=== PATIENT | male | born 1965 | race American Indian/Alaskan Native ===

== ENCOUNTER 2017-01-13 09:07 | Emergency (ER) | payer SELFPAY ==
--- NOTE | 2017-01-13 11:11 | Emergency Department Report ---
- General Chief complaint: Skin Rash Stated complaint: POSSIBLE ALLERGIC REACTION, RASH ON FACE Time Seen by Provider: 01/13/17 11:10 Source: patient, family Mode of arrival: Ambulatory Limitations: No Limitations - History of Present Illness Initial comments: Patient here reports rash to his face and neck abdomen and He said he woke up this morning with this rash. Patient said that he has been treated for eczema in the past and it looks like it's the same rash. He said the only thing he ate yesterday was lorenzo and shrimp any had these in the past. Denies any cough , congestion, wheezing, stridor, chest pain or difficulty breathing. Denies it is on the tongue, neck or difficulty swallowing. Denies any fever or chills. Rash is itchy. Denies painful rash. MD complaint: rash -: This morning Tetanus Up to Date: yes Location: face, neck, chest, back Severity scale (0 -10): 0 Context: other (history of eczerma) Associated symptoms: denies other symptoms Treatments Prior to Arrival: none - Related Data Previous Rx's Medication Instructions Recorded Last Taken Type Ciprofloxacin HCl [Ciprofloxacin 500 mg PO Q12H #28 tab 11/13/14 Unknown Rx TAB] Fluconazole [Diflucan TAB] 150 mg PO ONCE #1 tablet 11/13/14 Unknown Rx hydrOXYzine HCL [Atarax] 25 mg PO Q8H PRN #30 tablet 11/13/14 Unknown Rx Gentamicin 0.3% Ophth Soln 1 - 2 drops OP Q4H #1 bottle 01/08/15 Unknown Rx Triamcinolone 0.1% [Kenalog 0.1% 1 applic TP Q12H #1 tube 01/13/17 Unknown Rx OINT] hydrOXYzine HCL [Atarax] 25 mg PO Q6HR PRN #16 tablet 01/13/17 Unknown Rx predniSONE [Deltasone] 20 mg PO QAM #6 tab 01/13/17 Unknown Rx Allergies Allergy/AdvReac Type Severity Reaction Status Date / Time No Known Allergies Allergy Verified 01/13/17 09:10 Abscess Boil HPI - HPI Chief Complaint: Skin Rash Stated Complaint: POSSIBLE ALLERGIC REACTION, RASH ON FACE Time Seen by Provider: 01/13/17 11:10 Home Medications: Previous Rx's Medication Instructions Recorded Last Taken Type Ciprofloxacin HCl [Ciprofloxacin 500 mg PO Q12H #28 tab 11/13/14 Unknown Rx TAB] Fluconazole [Diflucan TAB] 150 mg PO ONCE #1 tablet 11/13/14 Unknown Rx hydrOXYzine HCL [Atarax] 25 mg PO Q8H PRN #30 tablet 11/13/14 Unknown Rx Gentamicin 0.3% Ophth Soln 1 - 2 drops OP Q4H #1 bottle 01/08/15 Unknown Rx Triamcinolone 0.1% [Kenalog 0.1% 1 applic TP Q12H #1 tube 01/13/17 Unknown Rx OINT] hydrOXYzine HCL [Atarax] 25 mg PO Q6HR PRN #16 tablet 01/13/17 Unknown Rx predniSONE [Deltasone] 20 mg PO QAM #6 tab 01/13/17 Unknown Rx Allergies/Adverse Reactions: Allergies Allergy/AdvReac Type Severity Reaction Status Date / Time No Known Allergies Allergy Verified 01/13/17 09:10 ED Review of Systems ROS: Stated complaint: POSSIBLE ALLERGIC REACTION, RASH ON FACE Other details as noted in HPI Comment: All other systems reviewed and negative Constitutional: no symptoms reported ENT: denies: throat pain, congestion Respiratory: no symptoms reported Cardiovascular: denies: chest pain, palpitations, dyspnea on exertion, edema, syncope, paroxysmal nocturnal dyspnea Gastrointestinal: denies: abdominal pain, nausea, vomiting, diarrhea Musculoskeletal: denies: back pain, joint swelling, arthralgia, myalgia Skin: rash, pruritus Neurological: denies: headache, weakness, numbness, paresthesias, confusion, abnormal gait, vertigo ED Past Medical Hx - Past Medical History Previous Medical History?: Yes Hx Hypertension: Yes - Surgical History Past Surgical History?: No - Family History Family history: no significant - Social History Smoking Status: Current Every Day Smoker Substance Use Type: Alcohol - Medications Home Medications: Home Medications Medication Instructions Recorded Confirmed Last Taken Type Ciprofloxacin HCl [Ciprofloxacin 500 mg PO Q12H #28 tab 11/13/14 Unknown Rx TAB] Fluconazole [Diflucan TAB] 150 mg PO ONCE #1 tablet 11/13/14 Unknown Rx hydrOXYzine HCL [Atarax] 25 mg PO Q8H PRN #30 tablet 11/13/14 Unknown Rx Gentamicin 0.3% Ophth Soln 1 - 2 drops OP Q4H #1 bottle 01/08/15 Unknown Rx Triamcinolone 0.1% [Kenalog 0.1% 1 applic TP Q12H #1 tube 01/13/17 Unknown Rx OINT] hydrOXYzine HCL [Atarax] 25 mg PO Q6HR PRN #16 tablet 01/13/17 Unknown Rx predniSONE [Deltasone] 20 mg PO QAM #6 tab 01/13/17 Unknown Rx ED Physical Exam - General Limitations: No Limitations General appearance: alert, in no apparent distress - Head Head exam: Present: atraumatic, normocephalic, normal inspection - Eye Eye exam: Present: normal appearance, PERRL, EOMI. Absent: periorbital swelling , periorbital tenderness Pupils: Present: normal accommodation - ENT ENT exam: Present: normal exam, normal orophraynx, mucous membranes moist - Neck Neck exam: Present: normal inspection, full ROM. Absent: tenderness, lymphadenopathy, thyromegaly - Expanded Neck Exam Expanded Neck exam: Absent: tenderness, midline deformity, anterior neck swelling, tracheal deviation - Respiratory Respiratory exam: Present: normal lung sounds bilaterally. Absent: respiratory distress, chest wall tenderness, accessory muscle use - Cardiovascular Cardiovascular Exam: Present: regular rate, normal rhythm, normal heart sounds. Absent: systolic murmur, diastolic murmur - GI/Abdominal GI/Abdominal exam: Present: soft, normal bowel sounds. Absent: distended, tenderness, guarding, rebound, rigid - Extremities Exam Extremities exam: Present: full ROM, normal capillary refill. Absent: tenderness, pedal edema, joint swelling, calf tenderness - Neurological Exam Neurological exam: Present: alert, oriented X3, normal gait, reflexes normal. Absent: motor sensory deficit - Psychiatric Psychiatric exam: Present: normal affect, normal mood - Skin Skin exam: Present: warm, dry, rash - Expanded Skin Exam Expanded Type of lesion: Present: rash Distribution of rash: face, neck, chest, back, RUE (antecubital area), LUE (the cubital area) Description of rash: Present: crusting, other (dry scaly, patches). Absent: tenderness, erythematous, swelling, urticarial, discharge ED Course Vital Signs 01/13/17 09:11 Temperature 98.2 F Pulse Rate 95 H Respiratory 18 Rate Blood Pressure 151/96 O2 Sat by Pulse 96 Oximetry - Reevaluation(s) Reevaluation #1: 01/13/17 12:57 Patient treated in emergency room with Solu-Medrol 120 mg IV, Benadryl 50 mg IV and Pepcid 20 mg IV. He voiced relief of itching in. Patient with eczema flare ED Medical Decision Making - Medical Decision Making ED course: Pt here complaining of rash that started this morning physical findings for eczema flare she's had in the past. Patient was given Benadryl 50 mg IV, Solu-Medrol 125 mg IV and Pepcid 20 mg IV and emergency room which relieved Itching. Patient rash is localized to the skin and does not affect his respiratory system. Records were reflects that he is being treated here in the past for similar incident. I discussed patient that I will put him on Atarax which is taken in the past and steroids and to follow up with environmental engineering technician and 3 days. Critical care attestation.: If time is entered above; I have spent that time in minutes in the direct care of this critically ill patient, excluding procedure time. ED Disposition Clinical Impression: Pruritus Eczema Qualifiers: Eczema type: unspecified Qualified Code(s): L30.9 - Dermatitis, unspecified Disposition: DC-01 TO HOME OR SELFCARE Is pt being admited?: No Does the pt Need Aspirin: No Condition: Stable Instructions: Eczema (ED), Itchy Skin (ED) Additional Instructions: Take medication as prescribed Follow-up with environmental engineering technician in 3 days Keep affected area clean and dry. Followed discharge instruction on acute wound care . Please return to emergency room if you develop increasing redness, streaking, fever, difficulty moving in and the left forearm and increase in pain. Prescriptions: hydrOXYzine HCL [Atarax] 25 mg PO Q6HR PRN #16 tablet PRN Reason: Itching predniSONE [Deltasone] 20 mg PO QAM #6 tab Triamcinolone 0.1% [Kenalog 0.1% OINT] 1 applic TP Q12H #1 tube Referrals: PRIMARY CAREMD [Primary Care Provider] - 01/16/17 MIKE MONTES DE OCA MD [Staff Physician] - 01/16/17 Forms: Work/School Release Form(ED)
[2017-01-13] MEDS ORDERED: BENADRYL IV ONE (11:12)
[2017-01-13] MEDS ORDERED: PEPCID IV ONE (11:12)
[2017-01-13] MEDS ORDERED: CLEOCIN 900 MG/50 mL 900 MG/50 ML BAG IV ONE (11:13)
[2017-01-13 13:21] VITALS: BP 175/95
== END 2017-01-13 13:22 | disposition home or self-care (01) ==
LOC: ED 09:07
DX: L30.9 Dermatitis, unspecified (principal); I10 Essential (primary) hypertension; F17.210 Nicotine dependence, cigarettes, uncomplicated
CPT/HCPCS: 96365; 96366; 96375; 99282; J1200; J2930

== ENCOUNTER 2017-02-02 03:05 | Emergency (ER) | payer SELFPAY ==
[2017-02-02] MEDS ORDERED: CATAPRES PO ONE (05:56)
[2017-02-02 06:22] LABS: Bilirubin,Urine NEG (Negative); Blood,Urine SM (Negative); Ketones,Urine NEG (Negative); Leukocyte Esterase,Urine SM (Negative); Mucus,Urine FEW /HPF; Nitrite,Urine NEG (Negative); Protein,Urine <15 mg/dL mg/dL (Negative)
[2017-02-02 07:21] VITALS: BP 141/94
[2017-02-02] MEDS ORDERED: ZITHROMAX PO ONE (08:21)
[2017-02-02] MEDS ORDERED: XYLOCAINE 1% MPF 5 mL INFILTRATI ONE (08:21)
[2017-02-02] MEDS ORDERED: ROCEPHIN IM ONE (08:21)
--- NOTE | 2017-02-02 08:23 | Emergency Department Report ---
HPI - General Chief Complaint: Skin Rash Time Seen by Provider: 02/02/17 08:09 - HPI HPI: Patient here report that he has flareup of eczema on his face back of his neck and his upper extremities. He said he has eczema and when he gets a flare up he usually takes steroids. He reports a itch. Patient is also requesting that he gets treatment for STD because his girlfriend called them and told them that she has gonorrhea. He said he is not having any penile discharge or urinary burning frequency or urgency. Denies any abdominal or back pain. Denies any fever or chills. Denies any blood in his urine. He said he would just like to get treated. As any difficulty breathing or respiratory symptoms of eczema flareup. Patient blood pressure is elevated at 175/112 and he does have a history of hypertension and said he takes blood pressure medicine she does not take today. He was given clonidine 0.2 mg in triage ED Past Medical Hx - Past Medical History Previous Medical History?: Yes Hx Hypertension: Yes - Surgical History Past Surgical History?: No - Family History Family history: no significant - Social History Smoking Status: Current Every Day Smoker Substance Use Type: Alcohol - Medications Home Medications: Home Medications Medication Instructions Recorded Confirmed Last Taken Type Fluconazole [Diflucan TAB] 150 mg PO ONCE #1 tablet 11/13/14 Unknown Rx Gentamicin 0.3% Ophth Soln 1 - 2 drops OP Q4H #1 bottle 01/08/15 Unknown Rx hydrOXYzine HCL [Atarax] 25 mg PO Q6HR PRN #16 tablet 01/13/17 Unknown Rx predniSONE [Deltasone] 20 mg PO QAM #6 tab 01/13/17 Unknown Rx Ciprofloxacin HCl [Ciprofloxacin 500 mg PO Q12H #20 tab 02/02/17 Unknown Rx TAB] Triamcinolone 0.1% [Kenalog 0.1% 1 applic TP Q12H #1 tube 02/02/17 Unknown Rx OINT] hydrOXYzine HCL [Atarax] 25 mg PO Q8H PRN #15 tablet 02/02/17 Unknown Rx methylPREDNISolone [Medrol] 4 mg PO QAM #1 tab.ds.pk 02/02/17 Unknown Rx ED Review of Systems ROS: Stated complaint: RASH Other details as noted in HPI Comment: All other systems reviewed and negative Constitutional: no symptoms reported Eyes: denies: eye pain, vision change Respiratory: no symptoms reported Cardiovascular: denies: chest pain, palpitations, edema, syncope Gastrointestinal: denies: abdominal pain, nausea, vomiting, diarrhea, constipation Genitourinary: other (patient with STD exposure). denies: urgency, dysuria, frequency, hematuria, discharge, testicular pain, testicular mass Musculoskeletal: denies: back pain, joint swelling, arthralgia, myalgia Skin: rash, pruritus Neurological: denies: headache, weakness, numbness, paresthesias, confusion, abnormal gait, vertigo Physical Exam - Physical Exam Vital Signs: Vital Signs 02/02/17 02/02/17 03:52 07:20 Temperature 98.4 F Pulse Rate 81 66 Respiratory 18 18 Rate Blood Pressure 175/112 Blood Pressure 141/94 [Left] O2 Sat by Pulse 98 97 Oximetry General: This is a 51-year-old male well-nourished well-developed in no acute distress. Physical Exam: Head: Normocephalic, atraumatic, no abrasion, no bruising and no contusion. Eyes: Biateral pupils equal and reactive to light, bilateral EOM intact.. Bilateral conjunctival and sclera without injection, normal accommodation. No nystagmus Ears: Bilateral TMs pearly weathers, bilateral nasal mucosa normal without any drainage. No maxillary or frontal sinus tenderness. No mastoid bone tenderness. Bilateral tract is nontender to palpate Mouth: Moist, no pharyngeal exudate or erythema. Uvula is midline and tongue is normal. Oral airways patent. Patient with mild gingival inflammation and tenderness to palpation around tooth #32. No induration noted. No facial swelling and multiple dental caries. Patient also has cracked tooth #32 Neck: Supple, No Cervical adenopathy, full range of motion and no C-spine tenderness. No swelling or tracheal deviation normal reflexes Cardiovascular: S1, S2. Regular rate and rhythm. No murmur. Capillary refill is less then 3 seconds. Lungs: Clear to auscultate bilaterally. No rhonchi, wheezes or rales. No chest wall tenderness MSK: Strength 5/5 in all extremities. No joint deformity or crepitus. Normal inspection. Full range of motion to all extremities Extremities: No clubbing, cyanosis or edema. +2 pulses. No neurovascular compromise Skin: Clean, dry and intact. No rash or lesions. Neurological: GCS at 15, Pt is alert and oriented 3 speech is clear period. Bilateral hand materials and corrosion engineer strong and equal. Normal gait. Negative Romberg and no pronator drift. Normal Reflexes. No motor or sensory deficit Back: No vertebral tenderness, no paraspinal tenderness. The bend over and touch his toes without any difficulties. Ambulates without any difficulties. Cardiovascular: S1, S2. Regular rate and rhythm. No murmur. Capillary refill is less then 3 seconds. Lungs: Clear to auscultate bilaterally. No rhonchi, wheezes or rales. No chest wall tenderness MSK: Strength 5/5 in all extremities. No joint deformity or crepitus. Normal inspection. Full range of motion to all extremities Extremities: No clubbing, cyanosis or edema. +2 pulses. No neurovascular compromise Skin: Patient with dry scaly patches to face, posterior neck and antecubital fossa bilaterally. Eczematous rash. No erythema. Patches are dark and flat. Areas of scaling without any crusting. ED Course Vital Signs 02/02/17 02/02/17 03:52 07:20 Temperature 98.4 F Pulse Rate 81 66 Respiratory 18 18 Rate Blood Pressure 175/112 Blood Pressure 141/94 [Left] O2 Sat by Pulse 98 97 Oximetry - Reevaluation(s) Reevaluation #1: 02/02/17 09:09 Patient here to be treated for flare up of eczema and also said that his girlfriend told him that she was treated for gonorrhea and he is requesting treatment. Patient given Rocephin 250 mg IM in emergency room, Decadron 10 mg IM And he was also given azithromycin 1 g by mouth without any adverse reaction. Patient urine is positive for bladder infection and urine culture sent Reevaluation #2: 02/02/17 09:29 Blood pressure better ED Medical Decision Making - Lab Data Lab Results 02/02/17 Range/Units Unknown Urine Color Yellow (Yellow) Urine Turbidity Clear (Clear) Urine pH 5.0 (5.0-7.0) Ur Specific [place] 1.012 (1.003-1.030) Urine Protein <15 mg/dl (Negative) mg/dL Urine Glucose (UA) Neg (Negative) mg/dL Urine Ketones Neg (Negative) mg/dL Urine Blood Sm (Negative) Urine Nitrite Neg (Negative) Urine Bilirubin Neg (Negative) Urine Urobilinogen 2.0 (<2.0) mg/dL Ur Leukocyte Esterase Sm (Negative) Urine WBC (Auto) 17.0 H (0.0-6.0) /HPF Urine RBC (Auto) 2.0 (0.0-6.0) /HPF U Epithel Cells (Auto) 6.0 (0-13.0) /HPF Urine Mucus Few /HPF Urine culture sent and pending - Medical Decision Making ED course: PT presented to the emergency room complaining of eczema flare. He is also requesting treatment for gonorrhea because he said his girlfriend tested positive and she was treated and she called him and told him to get checked and treated for gonorrhea. Urinalysis sent and patient with small amount of blood, small leukocyte Estrace and elevated white count in his urine. Urine culture sent and pending. Patient was given clonidine 0.2 mg in triage area for elevated blood pressure which he said he does have a history of high blood pressure and take medication but did not take today. Blood pressure is now 141/94 prior to discharge. Patient encouraged to take his blood pressure daily and to keep a log and follow up with his primary care physician. Patient was given Decadron 10 mg IM for eczema flare. He was given Rocephin 250 mg IM for gonorrhea and azithromycin 1 g by mouth for chlamydia. He chose to be treated empirically for STD. I discussed the patient is not resolved and treatment plan along with diagnosis and he voiced understanding. Patient discharged home with prescription for ciprofloxacin, Medrol Dosepak and Atarax. I discussed with him that he needs to refrain from having sexual activity for 10 days and to follow-up with health department in 7-10 days for recheck. I also discussed with him to practice safe sex and to follow-up with his primary care physician in 4 days. Critical care attestation.: If time is entered above; I have spent that time in minutes in the direct care of this critically ill patient, excluding procedure time. ED Disposition Clinical Impression: Exposure to STD, Acute cystitis with hematuria, Pruritic condition, Elevated blood pressure reading with diagnosis of hypertension Eczematous dermatitis Qualifiers: Eczema type: intrinsic Qualified Code(s): L20.84 - Intrinsic (allergic) eczema Disposition: - TO HOME OR SELFCARE Is pt being admited?: No Does the pt Need Aspirin: No Condition: Stable Instructions: Hypertension (ED), Eczema (ED), Urinary Tract Infection in Men ( ED), Itchy Skin (ED), Sexually Transmitted Diseases (ED), Safe Sex (ED), Heart Healthy Diet (ED), Low Sodium Diet (ED), How to Take a Blood Pressure (ED) Additional Instructions: Please refrain from having sexual activity for the next 2 weeks. Follow-up with your primary care physician in 4 days her blood pressure was elevated today and he needs to keep a log and take to primary care visit with here for reevaluation Follow up with [facility] in 7-10 days for repeat STD check You were treated today in emergency room for gonorrhea Practice safe sex increase her fluid intake Take medication as prescribed. You have a urinary tract infection so please take antibiotic as prescribed Please take eczema medication as prescribed. Prescriptions: Ciprofloxacin HCl [Ciprofloxacin TAB] 500 mg PO Q12H #20 tab hydrOXYzine HCL [Atarax] 25 mg PO Q8H PRN #15 tablet PRN Reason: Itching methylPREDNISolone [Medrol] 4 mg PO QAM #1 tab.ds.pk Triamcinolone 0.1% [Kenalog 0.1% OINT] 1 applic TP Q12H #1 tube Referrals: PRIMARY CARE, [Primary Care Provider] - 02/06/17 MIKE MONTES DE OCA MD [Staff Physician] - 3-5 Days [facility] [Outside] - 02/06/17 Forms: Work/School Release Form(ED)
== END 2017-02-02 09:46 | disposition home or self-care (01) ==
LOC: ED 03:05
DX: N30.01 Acute cystitis with hematuria (principal); I10 Essential (primary) hypertension; L29.9 Pruritus, unspecified; Z20.2 Contact with and (suspected) exposure to infections with a predominantly sexual mode of transmission; F17.200 Nicotine dependence, unspecified, uncomplicated
CPT/HCPCS: 81001; 87086; 96372; 99282; J0696

== ENCOUNTER 2017-08-17 01:10 | Emergency (ER) | payer SELFPAY ==
[2017-08-17 01:37] VITALS: BP 123/87
[2017-08-17] MEDS ORDERED: FLAGYL PO ONE (04:16)
--- NOTE | 2017-08-17 04:20 | Emergency Department Report ---
HPI - General Chief Complaint: Skin/Abscess/Foreign Body Time Seen by Provider: 08/17/17 03:31 - HPI HPI: This 52-year-old male with no probably medical history presents to ED complaining of constant chest verbalizes infection. She states he had obviously different to him to week ago that she had trichomoniasis. Patient states the like to be tested for his knees. Patient also states the the noticed a small bump on the left side of his head is temporal region. He denies fevers/chills/nausea/vomiting/abdominal pain/pelvic pain/genital lesions/testicular pain or swelling or penile discharge ED Past Medical Hx - Past Medical History Hx Hypertension: Yes - Surgical History Past Surgical History?: No - Social History Smoking Status: Current Every Day Smoker Substance Use Type: Alcohol, Marijuana - Medications Home Medications: Home Medications Medication Instructions Recorded Confirmed Last Taken Type Fluconazole [Diflucan TAB] 150 mg PO ONCE #1 tablet 11/13/14 Unknown Rx Gentamicin 0.3% Ophth Soln 1 - 2 drops OP Q4H #1 bottle 01/08/15 Unknown Rx hydrOXYzine HCL [Atarax] 25 mg PO Q6HR PRN #16 tablet 01/13/17 Unknown Rx predniSONE [Deltasone] 20 mg PO QAM #6 tab 01/13/17 Unknown Rx Triamcinolone 0.1% [Kenalog 0.1% 1 applic TP Q12H #1 tube 02/02/17 Unknown Rx OINT] hydrOXYzine HCL [Atarax] 25 mg PO Q8H PRN #15 tablet 02/02/17 Unknown Rx methylPREDNISolone [Medrol] 4 mg PO QAM #1 tab.ds.pk 02/02/17 Unknown Rx Ciprofloxacin HCl [Ciprofloxacin 500 mg PO Q12H #20 tab 08/17/17 Unknown Rx TAB] ED Review of Systems ROS: Stated complaint: NODULE LT LATTER DAY Other details as noted in HPI Constitutional: denies: chills, fever Eyes: denies: eye pain, eye discharge, vision change ENT: denies: ear pain, throat pain Respiratory: denies: cough, shortness of breath, wheezing Cardiovascular: denies: chest pain, palpitations Endocrine: no symptoms reported Gastrointestinal: denies: abdominal pain, nausea, diarrhea Genitourinary: denies: urgency, dysuria Musculoskeletal: denies: back pain, joint swelling, arthralgia Skin: denies: rash, lesions Neurological: denies: headache, weakness, paresthesias Psychiatric: denies: anxiety, depression Hematological/Lymphatic: denies: easy bleeding, easy bruising Physical Exam - Physical Exam Vital Signs: Vital Signs 08/17/17 01:30 Temperature 97.5 F L Pulse Rate 94 H Respiratory 20 Rate Blood Pressure 123/87 O2 Sat by Pulse 96 Oximetry Physical Exam: GENERAL: Alert and oriented x3, no apparent distress, Normal Gait, atraumatic. HEAD: Head is normocephalic and a-traumatic. Nontender to centimeter round consistent with a lipoma on the left temporal region of the head nonerythematous. EYES: Extra ocular muscles are intact. Pupils are equal, round, and reactive to light and accommodation. EARS: symetrical, atraumatic, non tender, ear canal clear and moderate cerumen, tympanic membrance non inflamed. gross auditory nml bilaterally. NOSE: Nose symetrical, Nontender,Nares appeared normal. ED Course Vital Signs 08/17/17 01:30 Temperature 97.5 F L Pulse Rate 94 H Respiratory 20 Rate Blood Pressure 123/87 O2 Sat by Pulse 96 Oximetry ED Medical Decision Making - Medical Decision Making 52-year-old male presents with STD exposure. ED course: Patient presents to be asymptomatic with no symptoms of std Patient received treatment for trichomoniasis. Discussed with patient wanted to follow up with [facility] for full STD testing. Discussed with patient findings and treatment Discussed prophylaxis treatment patient is to abstain from sex 7-10 days as treatment. Discussed patient partner knowledge and treatment. Discussed the follow-up with the health department for further STD testing. Patient's alert and oriented times 3. Vital signs are normal patient is in no acute discharge. Patient will be discharged home with instructions. Critical care attestation.: If time is entered above; I have spent that time in minutes in the direct care of this critically ill patient, excluding procedure time. ED Disposition Clinical Impression: Possible exposure to STD, Lipoma Disposition: - TO HOME OR SELFCARE Is pt being admited?: No Does the pt Need Aspirin: No Condition: Stable Instructions: Safe Sex (ED), Sexually Transmitted Diseases (ED) Additional Instructions: Make sure to follow up with the primary care physician as discussed. Take all your medications as you've been prescribed. If you have any worsening symptoms or develop new symptoms please return to ED immediately. Prescriptions: Ciprofloxacin HCl [Ciprofloxacin TAB] 500 mg PO Q12H #20 tab Referrals: PRIMARY CARE, [Primary Care Provider] - 3-[address] [facility] [place] [Outside] - 3-5 Days [facility] [Outside] - 3-5 Days [facility] [Outside] - 3-5 Days [facility] [Outside] - 3-5 Days Forms: Work/School Release Form(ED) Time of Disposition: 04:22
== END 2017-08-17 04:29 | disposition home or self-care (01) ==
LOC: ED 01:10
DX: D17.9 Benign lipomatous neoplasm, unspecified (principal); I10 Essential (primary) hypertension; F17.200 Nicotine dependence, unspecified, uncomplicated; F12.10 Cannabis abuse, uncomplicated
CPT/HCPCS: 99282

== ENCOUNTER 2018-04-24 18:08 | Emergency (ER) | payer SELFPAY ==
[2018-04-24 18:38] VITALS: BP 157/96
[2018-04-24] MEDS ORDERED: SOLU-Medrol IM ONE (20:14)
--- NOTE | 2018-04-24 20:20 | Emergency Department Report ---
ED General Adult HPI - General Chief complaint: Skin Rash Stated complaint: RASH ON FACE Time Seen by Provider: 04/24/18 19:54 Source: patient Mode of arrival: Ambulatory Limitations: No Limitations - History of Present Illness Initial comments: 53-year-old -[place] male with past medical history of eczema. Emergency department having another flareup on this face and hands. Patient states that he has a known history of eczema but not quite compliant with his current eczema regimen has been also talked about some athlete's foot on his feet and think he [place] affected his face while scratching the area. He is requesting a sterile injection and oral medications and creams for home. Denies any shortness of breath, dysphagia, headaches, dizziness, presyncope, fever, chills, sweats. Denies any foreign travel. States this is the same as previous record. She had limited last year around December -: Gradual, days(s) (4) Quality: burning Improves with: none Worsens with: none Associated Symptoms: rash. denies: confusion, chest pain, cough, malaise, nausea/vomiting, syncope - Related Data Previous Rx's Medication Instructions Recorded Last Taken Type Fluconazole [Diflucan TAB] 150 mg PO ONCE #1 tablet 11/13/14 Unknown Rx Gentamicin 0.3% Ophth Soln 1 - 2 drops OP Q4H #1 bottle 01/08/15 Unknown Rx hydrOXYzine HCL [Atarax] 25 mg PO Q6HR PRN #16 tablet 01/13/17 Unknown Rx predniSONE [Deltasone] 20 mg PO QAM #6 tab 01/13/17 Unknown Rx Triamcinolone 0.1% [Kenalog 0.1% 1 applic TP Q12H #1 tube 02/02/17 Unknown Rx OINT] hydrOXYzine HCL [Atarax] 25 mg PO Q8H PRN #15 tablet 02/02/17 Unknown Rx methylPREDNISolone [Medrol] 4 mg PO QAM #1 tab.ds.pk 02/02/17 Unknown Rx Ciprofloxacin HCl [Ciprofloxacin 500 mg PO Q12H #20 tab 08/17/17 Unknown Rx TAB] Clotrimazole/Betamethasone Dip 1 applicatio TP BID #1 cream..g. 04/24/18 Unknown Rx [Lotrisone Cream] hydrOXYzine HCL [Atarax] 25 mg PO Q6HR PRN #20 tablet 04/24/18 Unknown Rx predniSONE [Deltasone] 50 mg PO QDAY #5 tab 04/24/18 Unknown Rx Allergies Allergy/AdvReac Type Severity Reaction Status Date / Time No Known Allergies Allergy Verified 04/24/18 18:31 ED Review of Systems ROS: Stated complaint: RASH ON FACE Other details as noted in HPI Constitutional: denies: chills, fever Eyes: denies: eye pain, eye discharge, vision change ENT: denies: ear pain, throat pain Respiratory: denies: cough, shortness of breath, wheezing Cardiovascular: denies: chest pain, palpitations Endocrine: no symptoms reported Gastrointestinal: denies: abdominal pain, nausea, diarrhea Genitourinary: denies: urgency, dysuria Musculoskeletal: denies: back pain, joint swelling, arthralgia Skin: rash. denies: lesions Neurological: denies: headache, weakness, paresthesias Psychiatric: denies: anxiety, depression Hematological/Lymphatic: denies: easy bleeding, easy bruising ED Past Medical Hx - Past Medical History Hx Hypertension: Yes - Social History Smoking Status: Current Every Day Smoker Substance Use Type: Alcohol, Marijuana - Medications Home Medications: Home Medications Medication Instructions Recorded Confirmed Last Taken Type Fluconazole [Diflucan TAB] 150 mg PO ONCE #1 tablet 11/13/14 Unknown Rx Gentamicin 0.3% Ophth Soln 1 - 2 drops OP Q4H #1 bottle 01/08/15 Unknown Rx hydrOXYzine HCL [Atarax] 25 mg PO Q6HR PRN #16 tablet 01/13/17 Unknown Rx predniSONE [Deltasone] 20 mg PO QAM #6 tab 01/13/17 Unknown Rx Triamcinolone 0.1% [Kenalog 0.1% 1 applic TP Q12H #1 tube 02/02/17 Unknown Rx OINT] hydrOXYzine HCL [Atarax] 25 mg PO Q8H PRN #15 tablet 02/02/17 Unknown Rx methylPREDNISolone [Medrol] 4 mg PO QAM #1 tab.ds.pk 02/02/17 Unknown Rx Ciprofloxacin HCl [Ciprofloxacin 500 mg PO Q12H #20 tab 08/17/17 Unknown Rx TAB] Clotrimazole/Betamethasone Dip 1 applicatio TP BID #1 cream..g. 04/24/18 Unknown Rx [Lotrisone Cream] hydrOXYzine HCL [Atarax] 25 mg PO Q6HR PRN #20 tablet 04/24/18 Unknown Rx predniSONE [Deltasone] 50 mg PO QDAY #5 tab 04/24/18 Unknown Rx ED Physical Exam - General Limitations: No Limitations General appearance: alert, in no apparent distress - Head Head exam: Present: atraumatic, normocephalic - Eye Eye exam: Present: normal appearance - ENT ENT exam: Present: mucous membranes moist - Neck Neck exam: Present: normal inspection - Respiratory Respiratory exam: Present: normal lung sounds bilaterally. Absent: respiratory distress - Cardiovascular Cardiovascular Exam: Present: regular rate, normal rhythm. Absent: systolic murmur, diastolic murmur, rubs, gallop - GI/Abdominal GI/Abdominal exam: Present: soft, normal bowel sounds - Rectal Rectal exam: Present: deferred - Extremities Exam Extremities exam: Present: normal inspection - Back Exam Back exam: Present: normal inspection, full ROM - Neurological Exam Neurological exam: Present: alert, oriented X3, CN II-XII intact, normal gait - Psychiatric Psychiatric exam: Present: normal affect, normal mood. Absent: anxious, flat affect - Skin Skin exam: Present: warm, dry, normal color, rash, other (hypopigmented scaly macular like rash to the face and arms and with some small fissures and negative of eczema presentation.) ED Course Vital Signs 04/24/18 18:31 Temperature 98.1 F Pulse Rate 98 H Respiratory 18 Rate Blood Pressure 157/96 O2 Sat by Pulse 99 Oximetry ED Medical Decision Making - Medical Decision Making 53-year-old male with chronic recurrent eczema and likely secondary fungal infection presents emergency department, and no acute distress with no signs of any lymphangitis or lymphedema. No dysphagia, no wheezing. Requesting his usual cocktail of medication to come back. This flareup. No gastrointestinal, pulmonary or cardiovascular symptomology is present. Denies any neurological symptoms as well. Discussed with him the need for compliance with his eczema regimen. Also advised him on the importance of follow-up with with dermatology for definitive management. Critical care attestation.: If time is entered above; I have spent that time in minutes in the direct care of this critically ill patient, excluding procedure time. ED Disposition Clinical Impression: Eczema Disposition: DC- TO HOME OR SELFCARE Is pt being admited?: No Does the pt Need Aspirin: No Condition: Stable Instructions: Eczema (ED), Tinea Pedis (ED) Prescriptions: Clotrimazole/Betamethasone Dip [Lotrisone Cream] 1 applicatio TP BID #1 cream..g. hydrOXYzine HCL [Atarax] 25 mg PO Q6HR PRN #20 tablet PRN Reason: Itching predniSONE [Deltasone] 50 mg PO QDAY #5 tab Referrals: [facility] [Provider Group] - 3-5 Days
== END 2018-04-24 20:40 | disposition home or self-care (01) ==
LOC: ED 18:08
DX: L30.9 Dermatitis, unspecified (principal); I10 Essential (primary) hypertension; F17.200 Nicotine dependence, unspecified, uncomplicated
CPT/HCPCS: 96372; 99282; J2930